=== PATIENT | female | born 1955 | race Caucasian/White ===

== ENCOUNTER → 2018-05-11 12:03 | Outpatient (CLI) | payer OTHER, SELFPAY ==
[2018-05-11 12:32] LABS: Add Manual Diff / Slide Review NO; Basophils Absolute Auto 100 /uL (0-100); Basophils Percent Auto 1.2 % (0-2); Eosinophils Absolute Auto 400 /uL (0-450); Eosinophils Percent Auto 3.9 % (2-4); Hematocrit 44.7 % (36-46); Hemoglobin 15.3 g/dL (12.0-16.0); Lymphocytes Absolute Auto 2700 /uL (1100-4500); Mean Corpuscular HGB Conc 34.2 % (30-36); Mean Corpuscular Hemoglobin 28.3 PG (26-34); Mean Corpuscular Volume 82.8 fL (80-100); Monocytes Absolute Auto 500 /uL (0-900); Monocytes Percent Auto 5.2 % (3-14); Neutrophils Absolute Auto 6300 /uL (1500-7000); Neutrophils Percent Auto 62.7 % (50-75); Platelet Count 274 X10^3/uL (150-400); Red Cell Distribution Width 14.3 % (11.6-14.8)
[2018-05-11 12:46] LABS: Hemoglobin A1C% w Est Avg Glu 9.3 % (4.0-6.0)
[2018-05-11 12:55] LABS: Alanine Aminotransferase 44 IU/L (9-52); Albumin 4.5 g/dL (3.5-5.0); Albumin Globulin Ratio 1.4 (1.0-2.8); Alkaline Phosphatase 76 U/L (38-126); Aspartate Aminotransferase 37 IU/L (14-36); BUN Creatinine Ratio 28.3 (6-22); Bilirubin Total 0.5 mg/dL (0.2-1.3); Blood Urea Nitrogen 17 mg/dL (7-17); C-Reactive Protein Quant 0.6 mg/dL (<1.0); Calcium 10.4 mg/dL (8.4-10.2); Carbon Dioxide 25 mmol/L (22-32); Chloride 101 mmol/L (98-107); Estimated Glomerular Filt Rate > 60.0 mL/min (>60); Globulin 3.3 g/dL (1.7-4.1); Glucose 205 mg/dL (80-110); HEMOLYSIS < 15 (0-50); Potassium 4.1 mmol/L (3.4-5.1); Sodium 138 mmol/L (137-145); Total Protein 7.8 g/dL (6.3-8.2)
[2018-05-11 13:14] LABS: Erythrocyte Sedimentation Rate 27 MM/HR (0-20)
[2018-05-11 13:23] LABS: Thyroid Stimulating Hormone 2.26 uIU/mL (0.47-4.68)
[2018-05-13 12:55] LABS: Aldolase 5.1 U/L (< 8.2)
== END ==
PROVIDERS: Family Provider Family Medicine; PCP Family Medicine; Visit Provider Family Medicine
DX: E11.9 Type 2 diabetes mellitus without complications (principal); G62.9 Polyneuropathy, unspecified
CPT/HCPCS: 36415; 80053; 82085; 83036; 84443; 85025; 85651; 86140

== ENCOUNTER → 2018-06-02 10:25 | Outpatient (CLI) | payer OTHER, SELFPAY | PROVIDERS: PCP Family Medicine; Visit Provider Family Medicine | DX: M54.16 Radiculopathy, lumbar region (principal); M54.12 Radiculopathy, cervical region | CPT/HCPCS: 95885; 95886; 95910 ==

== ENCOUNTER → 2018-06-29 14:39 | Outpatient (CLI) | payer OTHER, SELFPAY ==
--- NOTE | 2018-06-29 15:51 | DIET.PN ---
DIABETES Nutrition Initial Assessment:? ASSESS:?? 62 YoF with long standing hx of Type 2 DM, insulin dependent. Pt reports dm education around 15 yrs ago. States she does not eat much starch as they are difficult for her to digest since having band placed to reduce reflux. She has a sedentary job where she reports often not getting to eat all day. Pt has history of peripheral neuropathy which has just recently resolved with medication management. She does take prednisone for reoccurring bronchitis. LABS: Per pt report:? A1c: 9.3 (down from 12) FB-140 before dinner: 200-300 ? MEDS:?? glimepiride, lantus 80u pm , novolin 70/30 , novolin, gabapentin, prednisone ? DIET: Per 24-hour recall:? B: fruit (banana/apple), yogurt, cracker w/ cream cheese L: salad; lean cuisine; ham, cheese w/ crackers; fruit D: salad, pro, starch Sn: popcorn; peanut butter sandwich ? Weight: 280 ? Exercise:? none at this time NUTRITION DX 1. Altered Nutrition related labs related to impaired glucose metabolism, lack of previous exposure to accurate nutrition information as evidenced by pt report, dx of diabetes, previous diet high in refined carbohydrates.? INTERVENTION(s): 1. Discussed pathophysiology of diabetes. Reviewed A1c and its correlation to blood glucose numbers. Discussed recommended BG ranges. 2. Discussed importance of self-monitoring, how often, and when to check. 3. Reviewed hyper/hypoglycemia and treatment. 4. Reviewed safe disposal of equipment (strip/lancets/insulin needles). 5. Discussed impact of nutrition/diet on blood sugar control.? Discussed fed versus non-fed state.?? 6. Discussed the effect of carbohydrates/protein/fat on blood sugar control.? Stressed importance of consistent carbohydrate intake at each meal and provided instructions for recommended servings/portions of carbohydrates/protein per meal. Provided pt with educational material. 7. Reviewed carbohydrate counting and measuring carbohydrate content via serving sizes and reading nutrition labels.? Provided handouts.?? 8. Discussed the difference between simple versus complex carbohydrates and the effect of fiber on blood sugar control.? Discussed various methods to increase fiber content in diet. 9. Stressed importance of meal timing and not going >4-5 hours between meals. Encouraged adding protein to each meal to support glucose control. Provided list of protein foods. Discussed best protein options for heart health and to alleviate hunger. Patient agreeable. 10. Discussed healthy weight loss through diet and exercise to increase lean muscle mass.? Pt agreeable to walking daily. SMART goals: 1. Pt would like to lose 5# in the next month through dietary changes and physical activity. 2. Pt agreed to walk 20-30 min per day 3 x/wk. MONITOR/EVALUATE: Anticipate good compliance.? Nutrition follow up schedule for 1 mo to review BG, weight, food record and discuss protein/fat.
== END ==
PROVIDERS: PCP Family Medicine; Visit Provider Family Medicine
DX: E11.9 Type 2 diabetes mellitus without complications (principal); Z79.4 Long term (current) use of insulin
CPT/HCPCS: G0108

== ENCOUNTER → 2018-07-13 15:14 | Outpatient (CLI) | payer OTHER, SELFPAY ==
[2018-07-13 16:29] LABS: Hemoglobin A1C% w Est Avg Glu 9.4 % (4.0-6.0)
[2018-07-13 17:02] LABS: BUN Creatinine Ratio 23.8 (6-22); Blood Urea Nitrogen 19 mg/dL (7-17); Calcium 10.2 mg/dL (8.4-10.2); Carbon Dioxide 26 mmol/L (22-32); Chloride 101 mmol/L (98-107); Estimated Glomerular Filt Rate > 60.0 mL/min (>60); Glucose 242 mg/dL (80-110); HEMOLYSIS 27 (0-50); Potassium 4.4 mmol/L (3.4-5.1); Sodium 139 mmol/L (137-145)
== END ==
PROVIDERS: PCP Family Medicine; Visit Provider Family Medicine
DX: E11.9 Type 2 diabetes mellitus without complications (principal)
CPT/HCPCS: 36415; 80048; 83036

== ENCOUNTER → 2018-07-27 15:00 | Outpatient (CLI) | payer OTHER, SELFPAY ==
--- NOTE | 2018-07-27 15:46 | DIET.PN ---
Individual Nutrition Follow Up ? ASSESS:?62 yof?seen for diabetes nutrition F/U. Pt reports recent change in medication management after having 6 week A1c done. A1c went up 0.1%. Also reports weight gain r/t meds and swelling. States she has been walking 2-3x/wk and has been monitoring CHO intake sticking between 30-40g/meal. Pt concerned with increased BG numbers during midday regardless of recent dietary changes. States she has cut down on starches and is replacing starchy veg (corn/potatoes) with more greens. ? LABS: A1c: 9.4 FB-135 2 hr PP dinner: 175-250? Weight: 280 (no change) ? DIET: B: crackers w/ cream cheese, 1/2 fruit Sn: 1/2 fruit L: lean cuisine (20-30 CHO) D: protein, green veggie, starch (corn, potato, bread) ? EXERCISE:??walking 2-3x/wk for 30 min ? NUTRITION Dx? 1. Altered nutrition related labs r/t type 2 DM, inconsistent carbohydrate intake as evidenced by pt report, dietary recall.?? ? INTERVENTION? 1. Reviewed blood sugar log and implications/reasons for elevated/decreased blood sugar.? Pt with good understanding.? 2. Reviewed carbohydrate counting and importance of consistent carbohydrate intake.? 3. Reviewed meal intake and importance of balanced meals (juan to prevent overeating).??? 4. Provided information on fat/protein intake and ways to limit saturated fat. 5. Discussed need for possible medication adjustment. Recommended pt keep a food record of everything eaten with amounts and monitor FBG and 2hr PP every meal until f/u appt. 6. Stressed importance of daily activity and including resistance training. Goal: Pt will keep a food record w/ PP BG log at each meal. Pt hopes to lose 5# by follow up through increased activity and eating habits. ? MONITOR/EVALUATE: Pt receptive to information provided.? F/U scheduled for 1 mo to review BG log, food record, and weight.
== END ==
PROVIDERS: PCP Family Medicine; Visit Provider Family Medicine
DX: E11.9 Type 2 diabetes mellitus without complications (principal)
CPT/HCPCS: 97803

== ENCOUNTER → 2018-08-23 14:49 | Outpatient (CLI) | payer OTHER, SELFPAY ==
--- NOTE | 2018-08-23 15:35 | DIET.PN ---
INDIVIDUAL NUTRITION ASSESSMENT? ? ASSESS:? 62 yof?seen for 2nd diabetes nutrition F/U. States she recently started a new 1800 calorie diet after a weeks worth of blood glucose monitoring reading from 200 to too high indicating greater than 600. Pt just returned from vacation where she admits to eating whatever her sister prepared with several meals dining out. Since beginning her new meal plan and monitoring several times per day she has also reported several readings below 70 primarily in the afternoon and evening. She states she has really been cutting down on her portions since experiencing extreme hyperglycemia. She also reports increased physical activity. ? LABS: A1c:9.4 FB-200 2 hr PP:??80-200 ? Weight: 278 (down 2 lbs) ? DIET: 1800 kcal ; ~200g CHO ? EXERCISE:??walking 30-40 min 3x/wk ? NUTRITION Dx? 1. Altered nutrition related labs r/t type 2 DM, inconsistent carbohydrate intake as evidenced by pt report, dietary recall.?? ? INTERVENTION? 1. Reviewed blood sugar log and implications/reasons for elevated/decreased blood sugar.? 2. Discussed 1800 calorie meal plan and modified CHO servings per day to maintain normal glucose. 3. Reviewed meal intake and importance of balanced meals throughout the day to prevent overeating and hyper/hypoglycemia.??? 4. Provided information on fat/protein intake and importance of limiting saturated fat. 5. Reminded pt of importance of daily physical activity for weight loss and maintaining glucose control. ? Goals: 1. Pt will continue to keep a food record using new [employer] on phone. 2. Pt will continue to walk daily to help with weight loss and glucose control. MONITOR/EVALUATE: Pt receptive to information provided.? Follow-up scheduled after new labs in August.
== END ==
PROVIDERS: PCP Family Medicine; Visit Provider Family Medicine
DX: E11.9 Type 2 diabetes mellitus without complications (principal)
CPT/HCPCS: 97803

== ENCOUNTER → 2018-08-31 08:33 | Outpatient (CLI) | payer OTHER, SELFPAY | PROVIDERS: PCP Family Medicine; Visit Provider Physician Assistant | DX: L02.91 Cutaneous abscess, unspecified (principal) | CPT/HCPCS: 87070; 87075; 87205 ==

== ENCOUNTER → 2018-09-06 10:41 | Outpatient (CLI) | payer OTHER, SELFPAY | PROVIDERS: PCP Family Medicine; Visit Provider Family Medicine | DX: L02.211 Cutaneous abscess of abdominal wall (principal); E11.622 Type 2 diabetes mellitus with other skin ulcer; S31.104A Unspecified open wound of abdominal wall, left lower quadrant without penetration into peritoneal cavity, initial encounter | CPT/HCPCS: 11042; 87070; 87075; 87077; 87147; 87186; 87205; 99213 ==

== ENCOUNTER → 2018-09-13 10:11 | Outpatient (CLI) | payer OTHER, SELFPAY | PROVIDERS: PCP Family Medicine; Visit Provider Family Medicine | DX: E11.622 Type 2 diabetes mellitus with other skin ulcer (principal); S31.104A Unspecified open wound of abdominal wall, left lower quadrant without penetration into peritoneal cavity, initial encounter; L02.211 Cutaneous abscess of abdominal wall; R10.30 Lower abdominal pain, unspecified | CPT/HCPCS: 11042 ==

== ENCOUNTER → 2018-09-13 15:02 | Outpatient (CLI) | payer OTHER, SELFPAY ==
[2018-09-13 15:53] LABS: Hemoglobin A1C% w Est Avg Glu 8.4 % (4.0-6.0)
[2018-09-13 15:57] LABS: BUN Creatinine Ratio 31.3 (6-22); Blood Urea Nitrogen 25 mg/dL (7-17); Calcium 9.8 mg/dL (8.4-10.2); Carbon Dioxide 26 mmol/L (22-32); Chloride 103 mmol/L (98-107); Estimated Glomerular Filt Rate > 60.0 mL/min (>60); Glucose 219 mg/dL (80-110); HEMOLYSIS 25 (0-50); Potassium 4.4 mmol/L (3.4-5.1); Sodium 140 mmol/L (137-145)
== END ==
PROVIDERS: PCP Family Medicine; Visit Provider Family Medicine
DX: E11.9 Type 2 diabetes mellitus without complications (principal)
CPT/HCPCS: 36415; 80048; 83036

== ENCOUNTER → 2018-09-20 09:40 | Outpatient (CLI) | payer OTHER, SELFPAY | PROVIDERS: PCP Family Medicine; Visit Provider Family Medicine | DX: L02.211 Cutaneous abscess of abdominal wall (principal); E11.622 Type 2 diabetes mellitus with other skin ulcer; S31.104D Unspecified open wound of abdominal wall, left lower quadrant without penetration into peritoneal cavity, subsequent encounter | CPT/HCPCS: 99213 ==

== ENCOUNTER → 2018-09-21 10:31 | Outpatient (CLI) | payer OTHER, SELFPAY ==
--- NOTE | 2018-09-21 12:18 | DIET.PN ---
Diabetes Nutrition Follow Up Assess: Pt continues to follow 1800 calorie plan. She has continued to monitor BG 2x/day. Patient is happy to report only a few readings greater than 200. Indicates one elevated reading due to forgetting to take insulin. She is discouraged she is not losing weight regardless of strict eating habits and walking. Pt also reports recent emergency visit related to an abscess on her hip. States she has been visiting the wound clinic to have it cleaned out. Labs: 8.4 (09/14) SMB-200 (hyperglyc: 218, 225, 491) Weight: 280 (no change) Intervention: 1. Pt will continue to monitor blood glucose daily. 2. Begin 1700 damien meal plan with ~160g CHO per day. 3. 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 Provided recommendations of good snack alternatives. 5. Reminded pt of importance of physical activity for weight loss and glucose control. Monitor: follow up scheduled for 2 mo to monitor weight, dietary changes.
== END ==
PROVIDERS: PCP Family Medicine; Visit Provider Family Medicine
DX: E11.9 Type 2 diabetes mellitus without complications (principal)
CPT/HCPCS: 97803

== ENCOUNTER → 2018-10-03 07:34 | Outpatient (CLI) | payer OTHER, SELFPAY ==
[2018-10-03 08:43] LABS: Cholesterol 117 mg/dL (140-199); HDL Cholesterol 37 mg/dL (40-60); LDL Cholesterol Calculated 61 mg/dL (<100); Triglycerides 97 mg/dL (35-150)
[2018-10-03 10:51] LABS: Creatinine Urine Random 25.9 mg/dL
[2018-10-03 11:06] LABS: Microalbumin Urine Random 0.7 mg/dL (0-1.6)
== END ==
PROVIDERS: PCP Family Medicine; Visit Provider Family Medicine
DX: E11.9 Type 2 diabetes mellitus without complications (principal)
CPT/HCPCS: 36415; 80061; 82043; 82570

== ENCOUNTER → 2018-10-04 08:56 | Outpatient (CLI) | payer OTHER, SELFPAY | PROVIDERS: PCP Family Medicine; Visit Provider Family Medicine | DX: Z48.817 Encounter for surgical aftercare following surgery on the skin and subcutaneous tissue (principal); E11.9 Type 2 diabetes mellitus without complications | CPT/HCPCS: 99212 ==

== ENCOUNTER → 2019-01-09 14:48 | Outpatient (CLI) | payer OTHER, SELFPAY ==
[2019-01-09 16:42] LABS: BUN Creatinine Ratio 26.7 (6-22); Blood Urea Nitrogen 16 mg/dL (7-17); Carbon Dioxide 27 mmol/L (22-32); Chloride 98 mmol/L (98-107); Estimated Glomerular Filt Rate > 60.0 mL/min (>60); Glucose 353 mg/dL (80-110); HEMOLYSIS 28 (0-50); Potassium 4.9 mmol/L (3.4-5.1); Sodium 138 mmol/L (137-145)
[2019-01-09 16:44] LABS: Hemoglobin A1C% w Est Avg Glu 11.2 % (4.0-6.0)
[2019-01-09 16:49] LABS: Creatinine Urine Random 78.7 mg/dL
[2019-01-09 16:50] LABS: Microalbumi Creatinin Ratio Ur 27.9 ug/mg CR (<30); Microalbumin Urine Random 2.2 mg/dL (0-1.6)
== END ==
PROVIDERS: PCP Family Medicine; Visit Provider Family Medicine
DX: E11.9 Type 2 diabetes mellitus without complications (principal)
CPT/HCPCS: 36415; 80048; 82043; 82570; 83036

== ENCOUNTER → 2019-01-10 15:47 | Outpatient (CLI) | payer OTHER, SELFPAY ==
--- NOTE | 2019-01-10 15:49 | DI.RAD.S_ITS ---
PROCEDURE: XR KNEE RT 3V INDICATIONS: Knee pain TECHNIQUE: 3 views of the knee were acquired. COMPARISON: None. FINDINGS: Bones: No fractures or dislocations. No suspicious bony lesions. Soft tissues: No joint effusion. No suspicious soft tissue calcifications. IMPRESSION: No trauma found. Dictated by: Paulo Carmen M.D. on 01/10/2019 at 16:09 Approved by: Paulo Carmen M.D. on 01/10/2019 at 16:09
== END ==
PROVIDERS: PCP Family Medicine; Visit Provider Family Medicine
DX: M25.561 Pain in right knee (principal)
CPT/HCPCS: 73562

== ENCOUNTER → 2019-01-17 18:58 | Outpatient (CLI) | payer OTHER, SELFPAY ==
--- NOTE | 2019-01-17 19:02 | DI.MRI.S_ITS ---
PROCEDURE: MR KNEE RT WO CON INDICATIONS: Knee pain TECHNIQUE: Noncontrast sagittal PD fast spin echo and T2 fast spin echo with fat saturation, sagittal 3-D FLASH with fat saturation; coronal T1 spin echo and PD fast spin echo with fat saturation, and axial PD fast spin echo with fat saturation through the knee. COMPARISON: None. FINDINGS: Image quality: Excellent. Menisci: Subtle oblique tear involving posterior horn of medial meniscus is seen extending to inferior articulating surface. There is no focal lateral meniscal tear.. The meniscal root ligaments appear intact. Cruciate ligaments: The anterior and posterior cruciate ligaments appear intact. Medial structures: Low-grade proximal MCL sprain is seen. The posterior oblique ligament, semimembranosus tendon insertions, oblique popliteal ligament, and meniscocapsular junction appear intact. Visualized portions of the pes anserinus tendons appear normal. No abnormal bursal fluid. Lateral structures: The lateral collateral ligament, long and short heads of the biceps femoris tendon appear intact. The popliteus tendon appears normal; the popliteofibular ligament appears intact. The posterosuperior and anteroinferior popliteomeniscal fascicles appear intact. The arcuate and fabellofibular ligaments appear intact, on either side of the lateral inferior geniculate artery. Iliotibial band appears normal. Anterior structures: The quadriceps and patellar tendons appear intact. Patellar alignment is normal. No femoral trochlear dysplasia or ventral trochlear prominence. No edema in the infrapatellar fat pad. Bones and cartilage: No bone marrow contusions or fractures. Mild tricompartmental osteoarthritis a low-grade chondromalacia is seen. Joint space: There is trace knee joint fluid. No Polanco's cyst. Normal appearing synovial plicae are incidentally noted. IMPRESSION: 1. Subtle oblique tear involving posterior horn of medial meniscus extending to inferior articulating surface. No focal lateral meniscal tear. 2. Low-grade MCL sprain. Anterior and posterior cruciate ligaments are intact. 3. Very mild tricompartmental osteoarthritis and chondromalacia. Trace joint effusion. Dictated by: Dmitriy Stephens M.D. on 01/18/2019 at 10:33 Approved by: Dmitriy Stephens M.D. on 01/18/2019 at 10:38
== END ==
PROVIDERS: Family Provider Family Medicine; PCP Family Medicine; Visit Provider Family Medicine
DX: M25.561 Pain in right knee (principal); S83.241A Other tear of medial meniscus, current injury, right knee, initial encounter; S83.411A Sprain of medial collateral ligament of right knee, initial encounter; M17.11 Unilateral primary osteoarthritis, right knee
CPT/HCPCS: 73721

== ENCOUNTER → 2019-05-02 15:14 | Outpatient (CLI) | payer OTHER, SELFPAY ==
[2019-05-02 16:30] LABS: Hemoglobin A1C% w Est Avg Glu 11.9 % (4.0-6.0)
[2019-05-02 16:36] LABS: BUN Creatinine Ratio 26.3 (6-22); Blood Urea Nitrogen 21 mg/dL (7-17); Estimated Glomerular Filt Rate > 60.0 mL/min (>60)
== END ==
PROVIDERS: Family Provider Family Medicine; PCP Family Medicine; Referring Provider Family Medicine; Visit Provider Family Medicine
DX: E11.9 Type 2 diabetes mellitus without complications (principal)
CPT/HCPCS: 36415; 82565; 83036; 84520

== ENCOUNTER → 2019-10-16 09:04 | Outpatient (CLI) | payer OTHER, SELFPAY ==
[2019-10-16 10:05] LABS: Add Manual Diff / Slide Review NO; Basophils Absolute Auto 100 /uL (0-100); Basophils Percent Auto 0.9 % (0-2); Eosinophils Absolute Auto 400 /uL (0-450); Eosinophils Percent Auto 5.1 % (2-4); Hematocrit 44.2 % (36-46); Hemoglobin 14.5 g/dL (12.0-16.0); Lymphocytes Absolute Auto 2300 /uL (1100-4500); Lymphocytes Percent Auto 27.1 % (25-40); Mean Corpuscular HGB Conc 32.8 % (30-36); Mean Corpuscular Hemoglobin 27.9 PG (26-34); Mean Corpuscular Volume 85.2 fL (80-100); Monocytes Absolute Auto 500 /uL (0-900); Monocytes Percent Auto 6.1 % (3-14); Neutrophils Absolute Auto 5200 /uL (1500-7000); Neutrophils Percent Auto 60.8 % (50-75); Platelet Count 290 X10^3/uL (150-400); Red Blood Cell Count 5.18 X10^6/uL (4.0-5.2); Red Cell Distribution Width 14.1 % (11.6-14.8); White Blood Cell Count 8.5 X10^3/uL (4.5-11.0)
[2019-10-16 10:12] LABS: Hemoglobin A1C% w Est Avg Glu 11.4 % (4.0-6.0)
[2019-10-16 10:23] LABS: Alanine Aminotransferase 28 IU/L (<35); Albumin 4.2 g/dL (3.5-5.0); Albumin Globulin Ratio 1.3 (1.0-2.8); Alkaline Phosphatase 87 U/L (38-126); Aspartate Aminotransferase 36 IU/L (14-36); BUN Creatinine Ratio 19.7 (6-22); Bilirubin Total 0.6 mg/dL (0.2-1.3); Blood Urea Nitrogen 13 mg/dL (7-17); Calcium 10.3 mg/dL (8.4-10.2); Carbon Dioxide 31 mmol/L (22-32); Chloride 106 mmol/L (98-107); Cholesterol 123 mg/dL (140-199); Estimated Glomerular Filt Rate > 60.0 mL/min (>60); Globulin 3.3 g/dL (1.7-4.1); Glucose 123 mg/dL (80-110); HDL Cholesterol 31 mg/dL (40-60); HEMOLYSIS < 15 (0-50); LDL Cholesterol Calculated 66 mg/dL (<100); Potassium 4.2 mmol/L (3.4-5.1); Sodium 143 mmol/L (137-145); Total Protein 7.5 g/dL (6.3-8.2); Triglycerides 131 mg/dL (35-150)
== END ==
PROVIDERS: Family Provider Family Medicine; PCP Family Medicine; Referring Provider Family Medicine; Visit Provider Family Medicine
DX: E11.9 Type 2 diabetes mellitus without complications (principal); E78.2 Mixed hyperlipidemia
CPT/HCPCS: 36415; 80053; 80061; 83036; 85025

== ENCOUNTER → 2019-10-17 11:47 | Outpatient (CLI) | payer OTHER, SELFPAY ==
--- NOTE | 2019-10-17 11:49 | DI.RAD.S_ITS ---
PROCEDURE: XR LUMBAR SPINE 2-3V INDICATIONS: Low back pain TECHNIQUE: 3 views of the lumbar spine were acquired. COMPARISON: None. FINDINGS: Bones: 5 [id number] vertebrae are present. There is normal bony alignment. No vertebral body compression fractures. No suspicious bony lesions. [id number] degenerative disc changes noted throughout the lumbar spine. Mild L4-L5 and L5-S1 facet arthropathy. Soft tissues: Overlying bowel gas pattern is normal. No suspicious soft tissue calcifications. IMPRESSION: 1. Multilevel degenerate disc disease. 2. Multilevel facet arthropathy. 3. No fracture. No acute osseous lesion. If symptoms and/or clinical suspicion for pathology persists, evaluation with MRI may be helpful for further assessment. Dictated by: Jennifer Lange MD, PhD on 10/17/2019 at 17:25 Approved by: Jennifer Lange MD, PhD on 10/17/2019 at 17:27
== END ==
PROVIDERS: Family Provider Family Medicine; PCP Family Medicine; Referring Provider Family Medicine; Visit Provider Family Medicine
DX: M54.5 Low back pain (principal); M51.36 Other intervertebral disc degeneration, lumbar region; M47.816 Spondylosis without myelopathy or radiculopathy, lumbar region; M47.817 Spondylosis without myelopathy or radiculopathy, lumbosacral region
CPT/HCPCS: 72100